=== PATIENT | female | born 1945 | race Caucasian/White ===

== ENCOUNTER 2024-09-16 05:51 | Inpatient (IN) | payer MEDICARE ==
[~2024-09-16] VITALS: Ht 157.4 cm; Wt 70.0 kg
[~2024-09-16 05:51] MED LIST: ASPIRIN ADULT L81 M2 PO; ATORVASTATIN CA40 M1 PO; FUROSEMIDE40 MG PO; METOPROLOL SUCC25 M2 PO; MUCUS RELIEF E600 MG PO; PREDNISONE10 MG PO
[2024-09-16 06:23] LABS: BASO # 0.0 10*3/uL (0.0-0.1); BASO % 0.1 % (0.0-1.0); EOS # 0.1 10*3/uL (0.0-0.4); EOS % 0.8 % (1.0-4.0); MEAN CELL VOLUME 88.7 fl (81.0-99.0); MEAN CORPUSCULAR HGB 28.5 pg (27.0-31.0); MEAN PLATELET VOLUME 10.1 fl (9.6-12.3); MONO # 0.7 10*3/uL (0.1-1.0); MONO % 7.4 % (3.0-9.0); NEUT # 4.1 10*3/uL (2.3-7.9); NEUT % 41.5 % (47.0-73.0); NUCLEATED RED BLOOD CELL 0.0 % (0.0-0.0); NUCLEATED RED BLOOD CELL 0.0 10*3/uL (0.0-0.0); PLATELET COUNT AUTOMATED 136 10*3/uL (130-400); RED CELL DISTRI WIDTH 14.1 % (0-14.5)
[2024-09-16 06:28] VITALS: BP 172/78
[2024-09-16 06:31] LABS: ACT PARTIAL THROMBO TIME 23.9 SECONDS (20.0-32.1)
[2024-09-16 06:43] LABS: BUN 14 mg/dl (9-23); CPK 37 U/L (34-171); MYOGLOBIN 53.0 ng/ml (13-71)
[2024-09-16] MEDS ORDERED: ASPIRIN, CHEWABLE 81 MG TAB PO ONE (06:45)
[2024-09-16] MEDS ORDERED: IOHEXOL 350 MG/ML 100 ML VIAL IV ONE (07:25)
[2024-09-16] MEDS ORDERED: SODIUM CHLORIDE 0.9% 100 ML BAG IV ONE (07:25)
[2024-09-16 08:16] LABS: BILIRUBIN Negative (Negative); BLOOD Negative (Negative); CLARITY Clear (Clear); COLOR Yellow (Yellow); KETONE Negative (Negative); LEUKO ESTERASE Negative (Negative); NITRITE Negative (Negative); PH 6.5 (4.5-8.0); SPECIFIC GRAVITY >= 1.030 (1.001-1.030); UROBILINOGEN 1.0 E.U./dl (0.0-1.0)
[2024-09-16 08:38] LABS: BACTERIA TRACE; EPITHELIAL CELLS 31-40; WBC 0-2 wbc/hpf (0-5)
[2024-09-16] MEDS ORDERED: Technetium Tc 99M MacroAg Albu 1 KIT KIT IV SCH (09:00)
[2024-09-16] MEDS ORDERED: HEPARIN SODIUM 250 ML IV SCH (12:50)
[2024-09-16 13:48] VITALS: BP 96/52
[2024-09-16 16:25] VITALS: BP 150/72
[2024-09-16] MEDS ORDERED: ACETAMINOPHEN 325 MG TAB PO PRN (16:50)
[2024-09-16] MEDS ORDERED: POTASSIUM CHLORIDE 20 MEQ TAB PO ONE (17:40)
[2024-09-16] MEDS ORDERED: BISACODYL 10 MG SUPP R PRN (18:50)
[2024-09-16] MEDS ORDERED: BISACODYL 5 MG TAB PO PRN (18:50)
[2024-09-16 20:00] VITALS: BP 174/68
[2024-09-17] VITALS: BP 142/57
[2024-09-17 06:28] LABS: BASO # 0.0 10*3/uL (0.0-0.1); BASO % 0.2 % (0.0-1.0); EOS # 0.1 10*3/uL (0.0-0.4); EOS % 1.1 % (1.0-4.0); MEAN CELL VOLUME 89.1 fl (81.0-99.0); MEAN CORPUSCULAR HGB 28.7 pg (27.0-31.0); MEAN PLATELET VOLUME 11.0 fl (9.6-12.3); MONO # 0.7 10*3/uL (0.1-1.0); MONO % 7.4 % (3.0-9.0); NEUT # 4.0 10*3/uL (2.3-7.9); NEUT % 41.1 % (47.0-73.0); NUCLEATED RED BLOOD CELL 0.0 % (0.0-0.0); NUCLEATED RED BLOOD CELL 0.0 10*3/uL (0.0-0.0); PLATELET COUNT AUTOMATED 130 10*3/uL (130-400); RED CELL DISTRI WIDTH 14.3 % (0-14.5)
[2024-09-17 06:51] LABS: BUN 14 mg/dl (9-23); LDL CHOLESTEROL 67 mg/dL (9-159); SGPT/ALT 31 U/L (5-49)
[2024-09-17 08:00] VITALS: BP 140/54
[2024-09-17 08:58] LABS: VITAMIN D, 25-HYDROXY 18.9 ng/mL (30-100)
[2024-09-17 11:55] VITALS: BP 140/69
[2024-09-17 16:00] VITALS: BP 152/72
[2024-09-17 18:00] VITALS: BP 130/82
[2024-09-17 20:00] VITALS: BP 145/61
[2024-09-18] VITALS: BP 146/73
[2024-09-18 07:20] VITALS: BP 148/68
[2024-09-18] MEDS ORDERED: ELIQUIS5 M2 PO (09:54)
[2024-09-18] MEDS ORDERED: XARELTO1 EACH PO (09:58)
[2024-09-18] MEDS ORDERED: ATORVASTATIN CALCIUM 40 MG TABLET PO SCH (10:00)
[2024-09-18] MEDS ORDERED: ASPIRIN ENTERIC COATED 81 MG TAB PO SCH (10:00)
[2024-09-18] MEDS ORDERED: METOPROLOL SUCCINATE XR 25 MG TAB PO SCH (10:00)
[2024-09-18] MEDS ORDERED: FUROSEMIDE 40 MG TAB PO SCH (10:00)
[2024-09-18] MEDS ORDERED: APIXABAN 5 MG TAB PO ONE ×5 (11:15→11:45)
[2024-09-18 12:00] VITALS: BP 147/74
== END 2024-09-18 13:08 | disposition home health service (06) | DRG 175 ==
LOC: ED 05:51 → EDHOLD 16:01 → 5E 16:01
PROVIDERS: Emergency Medicine; Internal Medicine; ADMIT Internal Medicine; ATTEND Internal Medicine
DX: I26.94 Multiple subsegmental thrombotic pulmonary emboli without acute cor pulmonale (principal); E43 Unspecified severe protein-calorie malnutrition; J96.10 Chronic respiratory failure, unspecified whether with hypoxia or hypercapnia; E87.6 Hypokalemia; I10 Essential (primary) hypertension; J44.9 Chronic obstructive pulmonary disease, unspecified; R29.700 NIHSS score 0; Z66 Do not resuscitate; E78.5 Hyperlipidemia, unspecified; R47.1 Dysarthria and anarthria; R73.9 Hyperglycemia, unspecified; F17.201 Nicotine dependence, unspecified, in remission; R47.81 Slurred speech; Z88.0 Allergy status to penicillin; Z79.899 Other long term (current) drug therapy; Z79.01 Long term (current) use of anticoagulants; Z79.2 Long term (current) use of antibiotics; I25.2 Old myocardial infarction; Z90.49 Acquired absence of other specified parts of digestive tract; Z90.710 Acquired absence of both cervix and uterus; Z83.6 Family history of other diseases of the respiratory system; Z68.28 Body mass index [BMI] 28.0-28.9, adult